=== PATIENT | male | born 1940 | race Caucasian/White ===

== ENCOUNTER 2022-03-06 03:39 | Inpatient (IN) | payer MEDICARE, OTHER ==
[~2022-03-06] VITALS: Ht 170.2 cm; Wt 68.5 kg
--- NOTE | 2022-03-06 03:50 | NUR ---
BIBRA C/O SOB AND DESATURATING AT NURSING FACILITY. PT HAS HX OF CHF AND BEGAN DESATTING TO 80S ON NC 3LPM. UPON EMS ARRIVAL PT HYPERTENSIVE AND 2 OF NITRO ADMINISTERRED WITH MINIMAL RELIEF. PT ARRIVED ON 15LPM NRB MASK SATTING 95%, BUT STILL REPORTS SOB AND IS TACHYPNEIC ON ASSESSMENT. MD WAS AT THE BEDSIDE FOR EVAL.
--- NOTE | 2022-03-06 04:11 | NUR ---
COVID ANTIGEN SWAB COLLECTED AND SENT TO LAB
--- NOTE | 2022-03-06 04:12 | NUR ---
18G IV LINE ESTABLISHED AT [facility]. BLOOD DRAWN AND SENT TO LAB.
[2022-03-06 04:39] LABS: BASOPHILS % (AUTO) 0.1 % (0.0-2.0); HEMATOCRIT 37 % (39-51); HEMOGLOBIN 11.5 g/dL (13.5-17.5); LYMPHOCYTES % (AUTO) 26.1 % (20.0-44.0); MEAN CORPUSCULAR HGB CONC 31 g/dl (31.0-36.0); MEAN CORPUSCULAR VOLUME 93 fL (80-96); MONOCYTES # (AUTO) 0.5 K/uL (0.1-1.30); MONOCYTES % (AUTO) 13.3 % (2.0-12.0); NEUTROPHILS # (AUTO) 2.2 K/uL (1.8-8.9); NEUTROPHILS % (AUTO) 60.5 % (43.0-81.0); PLATELET COUNT (AUTO) 216 K/uL (150-450); RED BLOOD CELL COUNT(AUTO) 3.94 MIL/uL (4.5-6.0); WHITE BLOOD COUNT (AUTO) 3.7 K/uL (4.3-11.0)
[2022-03-06 04:49] LABS: CALCIUM, SERUM 8.6 mg/dL (8.5-10.1); CARBON DIOXIDE 22 mmol/L (21-32); CHLORIDE 109 mmol/L (98-107); CREATININE 1.5 mg/dL (0.6-1.3); GLUCOSE 91 mg/dL (74-106); POTASSIUM 4.4 mmol/L (3.5-5.1); SODIUM SERUM 141 mmol/L (136-145); UREA NITROGEN, BLOOD 38 mg/dL (7-18)
[2022-03-06 05:16] LABS: ALANINE AMINOTRANSFERASE 52 U/L (12-78); ALKALINE PHOSPHATASE 216 U/L (46-116); ASPARTATE AMINOTRANSFERASE 30 U/L (15-37); BILIRUBIN,DIRECT 0.1 mg/dL (0.0-0.2); BILIRUBIN,TOTAL 0.4 mg/dL (0.2-1.0); TOTAL PROTEIN, SERUM 6.4 g/dL (6.4-8.2)
[2022-03-06] MEDS ORDERED: IV NS 0.9% 250 ML IV ONE (05:21)
[2022-03-06] MEDS ORDERED: CT SWABBABLE VALVE TRANS SET 1 EA INFUS.SET MC ONE (05:21)
[2022-03-06] MEDS ORDERED: IOHEXOL-350 100 ML VIAL IV ONE (05:21)
[2022-03-06] MEDS ORDERED: AZITHROMYCIN 500 MG in IV D5W 250 ML IV ONE (05:30)
[2022-03-06] MEDS ORDERED: CEFTRIAXONE 1GM BAG (ER ONLY) 1 GM/50 ML PIGGYBACK IV ONE (05:30)
[2022-03-06] MEDS ORDERED: CEFTRIAXONE 1GM BAG (ER ONLY) 50 ML IV ONE (05:45)
[2022-03-06] MEDS ORDERED: AZITHROMYCIN 500 MG VIAL ONE (05:49)
--- NOTE | 2022-03-06 06:00 | NUR ---
Dr. Marshall on the phone with Dr. Herman
[2022-03-06] MEDS ORDERED: hydrALAZINE HCL IV 20 MG VIAL IV PRN (06:30)
[2022-03-06] MEDS ORDERED: IPRATROPIUM/ALBUTEROL INHALER IH SCH (06:30)
[2022-03-06] MEDS ORDERED: MAG HYDROX/AL HYDROX/SIMETH 30 ML UDC PO PRN (06:30)
[2022-03-06] MEDS ORDERED: MORPHINE SULFATE INJ 2 MG/ML DISP.SYRIN IV PRN (06:30)
[2022-03-06] MEDS ORDERED: ONDANSETRON HCL/PF 4 MG/2 ML VIAL IVP PRN (06:30)
[2022-03-06] MEDS ORDERED: ACETAMINOPHEN 325 MG TABLET PO PRN (06:30)
[2022-03-06] MEDS ORDERED: ACETAMINOPHEN 325 MG TABLET ONE (06:57)
[2022-03-06] MEDS ORDERED: DOCU-141 PO (07:26)
[2022-03-06] MEDS ORDERED: ASCO500C17 PO (07:26)
[2022-03-06] MEDS ORDERED: FURO-145 PO (07:26)
[2022-03-06] MEDS ORDERED: PANT40TA49 PO (07:26)
[2022-03-06] MEDS ORDERED: APIX2.5T PO (07:26)
[2022-03-06] MEDS ORDERED: METO25TA6 PO (07:26)
[2022-03-06] MEDS ORDERED: MULT-439 PO (07:26)
[2022-03-06] MEDS ORDERED: LEVO112T5 PO (07:27)
[2022-03-06] MEDS ORDERED: Z GUARD REMEDY 4 OZ OINT TP PRN (09:00)
[2022-03-06] MEDS ORDERED: HEPARIN SODIUM, PORCINE 5000 UNITS/1 ML VIAL SQ SCH (09:00)
[2022-03-06] MEDS ORDERED: FUROSEMIDE 40 MG/4 ML VIAL IV SCH (09:00)
[2022-03-06] MEDS ORDERED: FUROSEMIDE 40 MG/4 ML VIAL ONE (09:37)
[2022-03-06] MEDS ORDERED: HEPARIN SODIUM, PORCINE 5000 UNITS/1 ML VIAL ONE (09:37)
--- NOTE | 2022-03-06 09:58 | NUR ---
bed given 109
[2022-03-06] MEDS ORDERED: FUROSEMIDE 100 MG/10 ML VIAL IV SCH (10:00)
[2022-03-06] MEDS ORDERED: PANTOPRAZOLE 40 MG TABLET.DR PO SCH (10:00)
--- NOTE | 2022-03-06 10:03 | NUR ---
REPORT LÓPEZ TO [facility] FOR [facility]
[2022-03-06 10:32] LABS: THYROID STIMULATING HORMONE 1.503 uIU/mL (0.358-3.74)
--- NOTE | 2022-03-06 10:50 | NUR ---
ms rn received a new admission from er, 81 year old male, awake,alert,oriented x3-4,came in w/ sob, dx-pna, on o2 mask saturating 99%, denies pain at this time, under lauro roy, will monitor patient.
[2022-03-06 11:00] VITALS: BP 122/85
--- NOTE | 2022-03-06 11:00 | NUR ---
ms rn placed on monitor - afib at 90's, all needs attended.
[2022-03-06] MEDS ORDERED: ALBUTEROL FS 2.5 MG/0.5 ML VIAL.NEB NEB PRN (11:30)
--- NOTE | 2022-03-06 12:30 | NUR ---
ms rn refused lunch and due meds at this time,will take meds later.
--- NOTE | 2022-03-06 13:00 | NUR ---
ms rn at bedside, was able to speak w/ case briefer, wants to transfer to [facility] or go ama.
[2022-03-06] MEDS ORDERED: IPRATROPIUM NEB FS 0.5 MG/2.5 ML AMPUL.NEB NEB SCH (13:30)
[2022-03-06] MEDS ORDERED: ALBUTEROL FS 2.5 MG/3 ML VIAL.NEB NEB SCH (13:30)
--- NOTE | 2022-03-06 13:55 | NUR ---
ms rn patient and decided to go ama, patient went ama at this time.no distress noted,all needs attended.
[2022-03-06] MEDS ORDERED: MAGNESIUM HYDROXIDE 30 ML UDC PO PRN (22:00)
[2022-03-07] MEDS ORDERED: LEVOTHYROXINE SODIUM 100 MCG TABLET PO SCH (07:30)
[2022-03-07] MEDS ORDERED: DOCUSATE SODIUM 100 MG CAPSULE PO SCH (09:00)
== END 2022-03-06 13:58 | disposition home or self-care (01) | DRG 291 ==
LOC: ER 03:49 → TRANSITION 08:00 → TELE1 10:30
PROVIDERS: ADMIT Nurse Practitioner Acute Care; ATTEND Nurse Practitioner Acute Care
DX: I13.0 Hypertensive heart and chronic kidney disease with heart failure and stage 1 through stage 4 chronic kidney disease, or unspecified chronic kidney disease (principal); I50.21 Acute systolic (congestive) heart failure; J96.21 Acute and chronic respiratory failure with hypoxia; N17.0 Acute kidney failure with tubular necrosis; K51.90 Ulcerative colitis, unspecified, without complications; E44.1 Mild protein-calorie malnutrition; J90 Pleural effusion, not elsewhere classified; J98.11 Atelectasis; E85.4 Organ-limited amyloidosis; I48.91 Unspecified atrial fibrillation; N18.30 Chronic kidney disease, stage 3 unspecified; E03.9 Hypothyroidism, unspecified; Z20.822 Contact with and (suspected) exposure to COVID-19; Z86.79 Personal history of other diseases of the circulatory system; Z85.6 Personal history of leukemia; Z99.81 Dependence on supplemental oxygen; I27.20 Pulmonary hypertension, unspecified; I73.9 Peripheral vascular disease, unspecified; J44.9 Chronic obstructive pulmonary disease, unspecified; E88.09 Other disorders of plasma-protein metabolism, not elsewhere classified; Z79.01 Long term (current) use of anticoagulants; I43 Cardiomyopathy in diseases classified elsewhere
CPT/HCPCS: 36415; 71045-TC; 80048-TC; 80061-TC; 80076-TC; 83605-TC; 83880; 84439-TC; 84443-TC; 84484-TC; 85025-TC; 85730-TC; 87040-TC; 87081-TC; 93307-TC; 93971-TC; A6403; C9803; G0378; J0456; J0696; J1644; J1940; J7050; J7060; Q9967; U0003